=== PATIENT | male | born 1980 | race Caucasian/White ===

== ENCOUNTER → 2021-01-05 | Outpatient (REF) | payer OTHER ==
[2021-01-05 10:13] LABS: BASO # 0.1 10^3/uL (0.0-0.2); BASO % 0.8 % (0.0-1.0); EOS # 0.7 10^3/uL (0.0-0.5); EOS % 8.6 % (0.0-3.0); HEMATOCRIT 42.2 % (42.0-52.0); HEMOGLOBIN 13.5 g/dl (13.5-17.5); LYMPH # 2.2 10^3/uL (1.5-5.0); LYMPH % 27.9 % (24.0-44.0); MEAN CORPUSCULAR VOLUME 87.6 fl (80.0-96.0); MONO # 0.7 10^3/uL (0.0-0.8); MONO % 8.2 % (2.0-8.0); NEUTROPHILS # 4.3 10^3/uL (1.5-8.5); NEUTROPHILS % 54.2 % (36.0-66.0); PLATELET COUNT, AUTOMATED 233 10^3/uL (150-450); RED BLOOD COUNT 4.82 10^6/uL (4.30-6.10); WHITE BLOOD COUNT 7.9 10^3/uL (4.0-10.0)
[2021-01-05 11:03] LABS: ALBUMIN 3.4 GM/DL (3.2-5.2); ALT/SGPT 50 U/L (12-78); BILIRUBIN,TOTAL 0.5 MG/DL (0.2-1.0); BLOOD UREA NITROGEN 9 MG/DL (7-18); CALCIUM LEVEL 8.7 MG/DL (8.5-10.1); CARBON DIOXIDE LEVEL 30 MEQ/L (21-32); CHLORIDE LEVEL 106 MEQ/L (98-107); CREATININE FOR GFR 1.12 MG/DL (0.70-1.30); GLOMERULAR FILTRATION RATE > 60.0 (>60); GLUCOSE, FASTING 108 MG/DL (70-100); LIPASE 212 U/L (73-393); POTASSIUM SERUM 4.9 MEQ/L (3.5-5.1); SODIUM LEVEL 139 MEQ/L (136-145); TOTAL PROTEIN 7.2 GM/DL (6.4-8.2)
== END ==
LOC: M WUC 09:54
PROVIDERS: ATTEND Physician Assistant
DX: R10.10 Upper abdominal pain, unspecified (principal)

== ENCOUNTER → 2021-01-11 | Outpatient (CLI) | payer OTHER ==
[~2021-01-11] MED LIST: GASTROGRAFIN SOLUTION 30ML (Q9963) As Ordered ONE; ISOVUE-370 76% 100ML VIAL As Ordered ONE
--- NOTE | 2021-01-11 13:26 | REPVR ---
PROCEDURE INFORMATION: Exam: CT Abdomen With Contrast Exam date and time: 01/11/2021 12:40 PM Age: 40 years old Clinical indication: Abdominal pain; Epigastric; Additional info: Epigastric pain TECHNIQUE: Imaging protocol: Computed tomography images of the abdomen with intravenous contrast. Radiation optimization: All CT scans at this facility use at least one of these dose optimization techniques: automated exposure control; mA and/or kV adjustment per patient size (includes targeted exams where dose is matched to clinical indication); or iterative reconstruction. Contrast material: ISOVUE 370; Contrast volume: 100 ml; Contrast route: INTRAVENOUS (IV); COMPARISON: CR Spine, Thoracic 3 VIEWS 01/11/2021 11:50 AM FINDINGS: Lungs: A slightly irregular oval 5 x 10 mm opacity is seen in the right lower lobe on axial images 23 through 25 distal to a bronchus on axial image 21 and coronal image 89. This suggests focal dilatation of a distal bronchial segment with mucoid impaction. The density is about 25 units compared to 135 units for a similar size vessel medially suggesting that this does not represent a pulmonary vascular malformation. No other similar foci are seen. Diaphragm: A small hiatal hernia is present. Liver: There are no focal liver lesions present, no mass is identified. Gallbladder and bile ducts: Normal. No calcified stones. No ductal dilation. Pancreas: There is diffuse peripancreatic inflammatory stranding and fluid more prominent in the head, consistent with acute pancreatitis. There is no abnormal fluid collection identified. Spleen: The spleen is normal. Adrenals: The adrenal glands are normal. Kidneys and ureters: The kidneys are normal. There is no evidence of hydronephrosis. No calculi are identified. Stomach and bowel: Visualized stomach and bowel are unremarkable. No obstruction. No mucosal thickening. Appendix: A normal appendix is identified. Intraperitoneal space: There is no free intraperitoneal air. Lymph nodes: Unremarkable. No enlarged lymph nodes. Vasculature: See "Lungs" finding. Bones/joints: There is no evidence of fracture or destructive process. Soft tissues: Unremarkable. IMPRESSION: 1. There is no evidence of fracture or destructive process. 2. A slightly irregular oval 5 x 10 mm opacity is seen in the right lower lobe on axial images 23 through 25 distal to a bronchus on axial image 21 and coronal image 89. This suggests focal dilatation of a distal bronchial segment with mucoid impaction. The density is about 25 units compared to 135 units for a similar size vessel medially suggesting that this does not represent a pulmonary vascular malformation. No other similar foci are seen. 3. There is diffuse peripancreatic inflammatory stranding and fluid more prominent in the head, consistent with acute pancreatitis. There is no abnormal fluid collection identified. RECOMMENDATION: As per revised Fleischner Society guidelines for follow-up and management of pulmonary nodules: Recommend initial follow-up chest CT at 3 months with followup consideration at 18 to 24 months. Consider contrast enhanced chest CT, PET scan and/or biopsy as clinically warranted. Electronically signed by: Sammy Alcaraz On 01/11/2021 13:26:27 PM
--- NOTE | 2021-01-11 14:51 | REP ---
INDICATION: BACK PAIN. COMPARISON: None. TECHNIQUE: AP and lateral views FINDINGS: The pedicles are intact bilaterally. Vertebral body height and alignment is within normal limits. There is mild anterior disc space narrowing involving the midthoracic level. IMPRESSION: Mild chronic changes <Electronically signed by Eric Raymond > 01/11/21 [id number]
[2021-01-11 18:33] LABS: LIPASE 349 U/L (73-393)
== END ==
LOC: M RAD 11:12
PROVIDERS: ATTEND Family Medicine
DX: R10.13 Epigastric pain (principal)

== ENCOUNTER 2021-07-16 21:18 | Emergency (ER) | payer OTHER ==
[~2021-07-16] VITALS: Ht 180.3 cm; Wt 155.9 kg
[2021-07-16 21:20] VITALS: BP 164/77
[2021-07-16] MEDS ORDERED: SEMA1PEN2 SQ (21:36)
[2021-07-16] MEDS ORDERED: ALBU8.5H (21:36)
== END 2021-07-17 00:36 | disposition left against medical advice (07) ==
LOC: M ED 21:18
DX: Z53.21 Procedure and treatment not carried out due to patient leaving prior to being seen by health care provider (principal)

== ENCOUNTER → 2022-02-14 | Outpatient (CLI) | payer OTHER ==
[~2022-02-14] MED LIST changes: +ALBU8.5H; -GASTROGRAFIN SOLUTION 30ML (Q9963) As Ordered ONE; +SEMA1PEN2 SQ
== END ==
LOC: M RAD 08:16
PROVIDERS: ATTEND Family Medicine
DX: R91.8 Other nonspecific abnormal finding of lung field (principal)

== ENCOUNTER → 2023-11-27 | Outpatient (CLI) | payer OTHER ==
[~2023-11-27] MED LIST changes: -ISOVUE-370 76% 100ML VIAL As Ordered ONE
== END ==
LOC: M RAD 17:01
PROVIDERS: ATTEND Internal Medicine Pulmonary Disease
DX: R91.8 Other nonspecific abnormal finding of lung field (principal)

== ENCOUNTER → 2024-05-28 | Outpatient (REF) | payer OTHER | LOC: M LAB REF 12:16 | PROVIDERS: ATTEND Family Medicine | DX: R10.13 Epigastric pain (principal) ==